=== PATIENT | female | born 1990 | race Caucasian/White ===

== ENCOUNTER 2016-07-01 07:15 | Inpatient (IN) | payer BC ==
[2016-07-01] VITALS (30 sets, daily range): BP systolic 118–166; BP diastolic 75–115; PULSE 71–121; TEMP 97.8–98.3
[~2016-07-01] VITALS: Ht 167.6 cm; Wt 93.5 kg
[2016-07-01] MEDS ORDERED: ZOVIRAX 200MG200 MG PO (07:22)
[2016-07-01 07:52] LABS: BASO % 0.3 % (0.0-2.0); EOS # 0.2 (0.0-0.7); EOS % 1.3 % (0-4.0); GRAN # 8.6 (1.4-6.5); GRAN % 74.2 % (42.2-75.2); HEMOGLOBIN 12.3 g/dl (12.5-16.0); LYMPH % 16.9 % (20.0-51.0); MEAN CELL VOLUME 82 fl (80.0-100.0); MEAN CORPUSCULAR HEMOGLOBIN 28 pg (27.0-31.0); MEAN CORPUSCULAR HGB CONC 34 g/dl (33.0-37.0); MEAN PLATELET VOLUME 9.8 fl (7.4-10.4); MONO # 0.8 (0.1-0.6); MONO % 6.4 % (1.7-9.3); PLATELET COUNT 259 K/mm3 (130-400); RED BLOOD COUNT 4.44 M/mm3 (4.10-5.30); REDCELL DISTRIBUTION WIDTH-CV 13.2 % (11.5-14.5); WHITE BLOOD COUNT 11.6 K/mm3 (4.8-10.8)
[2016-07-01 07:54] LABS: HEMATOCRIT 36.5 % (37.0-47.0)
[2016-07-02 04:45] VITALS: BP 132/76; PULSE 94; TEMP 98.2
[2016-07-02 07:07] VITALS: BP 118/71; PULSE 84; TEMP 98
[2016-07-02 14:51] VITALS: BP 136/90; PULSE 81; TEMP 98.1
[2016-07-02 21:00] VITALS: BP 147/102; PULSE 66; TEMP 97.4
[2016-07-03 07:51] VITALS: BP 136/91; PULSE 83; TEMP 97.5
[2016-07-03] MEDS ORDERED: IBU600 MG PO (08:36)
[2016-07-03] MEDS ORDERED: PERCOCET 325 MG1 TA2 PO (08:36)
== END 2016-07-03 10:24 | disposition home health service (06) | DRG 775 ==
LOC: LDR 07:15 → OB 15:50
PROVIDERS: Obstetrics & Gynecology
PROC: 10E0XZZ Delivery of Products of Conception, External Approach (ICD-10-PCS; principal; 2016-07-01)
PROC: 0KQM0ZZ Repair Perineum Muscle, Open Approach (ICD-10-PCS; 2016-07-01)
DX: O99.824 Streptococcus B carrier state complicating childbirth (principal); O70.1 Second degree perineal laceration during delivery; Z3A.39 39 weeks gestation of pregnancy; Z37.0 Single live birth
CPT/HCPCS: J0360; J2540; J2590; J7120

== ENCOUNTER 2020-02-12 07:19 | Inpatient (IN) | payer OTHER ==
[2020-02-12] VITALS (34 sets, daily range): BP systolic 121–162; BP diastolic 70–103; PULSE 60–96; TEMP 98.2–98.3
[~2020-02-12] VITALS: Ht 167.6 cm; Wt 96.8 kg
[~2020-02-12 07:19] MED LIST: IBU600 MG PO; PERCOCET 325 MG1 TA2 PO; ZOVIRAX 200MG200 MG PO
--- NOTE | 2020-02-12 07:35 | NUR ---
Patient ambulatory to LR6 with spouse, changed into gown, FHR/TOCO monitors applied and explained. Patient denies any regular contractions/leaking of fluid/vaginal bleeding/decreased movement. Plan of care discussed 0755: IV started in left hand and blood obtained and to lab, LR/Penicillin infusing. Assessment completed and consents gone over and signed/ packet given.
[2020-02-12] MEDS ORDERED: PRENATAL TABLET PO (07:56)
--- NOTE | 2020-02-12 08:20 | NUR ---
Roles at bedside and assessing patient and FHR. No new orders at this time. 0835: Patient on birthing ball and difficulty tracing FHR due to maternal position, this RN at bedsid adjusting monitor. 1000: Patient requesting epidural at this time and Jay AMADO notified. 1015: Patient sitting on edge of bed for epidural and Jay NURSERY HELPER at bedside and difficulty tracing FHR due to maternal position. 1023: Test dose given and patient tolerates well. 1028: Patient repositioned and safety precautions discussed.
[2020-02-12 08:40] LABS: BASO % 0.3 % (0.0-2.0); EOS # 0.1 (0.0-0.7); EOS % 0.8 % (0-4.0); GRAN # 8.2 (1.4-6.5); GRAN % 75.3 % (42.2-75.2); HEMATOCRIT 41.1 % (37.0-47.0); HEMOGLOBIN 13.9 g/dl (12.5-16.0); LYMPH # 1.9 (1.2-3.4); LYMPH % 17.7 % (20.0-51.0); MEAN CELL VOLUME 88 fl (80.0-100.0); MEAN CORPUSCULAR HEMOGLOBIN 30 pg (27.0-31.0); MEAN CORPUSCULAR HGB CONC 34 g/dl (33.0-37.0); MEAN PLATELET VOLUME 10.6 fl (7.4-10.4); MONO # 0.6 (0.1-0.6); MONO % 5.4 % (1.7-9.3); PLATELET COUNT 237 K/mm3 (130-400); RED BLOOD COUNT 4.67 M/mm3 (4.10-5.30); REDCELL DISTRIBUTION WIDTH-CV 13.3 % (11.5-14.5)
--- NOTE | 2020-02-12 11:15 | NUR ---
Dr Roles at bedside and assessing patient and FHR strip. 1115: SVE per physician /- and AROM with clear fluid noted. No new orders.
--- NOTE | 2020-02-12 13:10 | NUR ---
Patient vomitting at this time and monitor adjusted. 1325: SVE-5/80/-2 and patient repositioned. FHR baseline 115bpm with moderate variability noted. 1415: Recurrent early variable decelerations noted. FHR baseline decreaseing to 90-100bpm 1420: SVE-10/100/0 and scalp stimulation noted. Marie catheter removed. Patient sitting in tracey position. 1426: Dr. Estrella called for delivery.
--- NOTE | 2020-02-12 14:35 | NUR ---
1435: Dr. Estrella at bedside and patient prepped for vaginal delivery. Bed taken apart and pericare done. 1439: Patient begins to start pushing with contractions per Dr. Estrella orders. 1441: Spontaneous vaginal delivery of viable male- head followed by body. bulb syringed and to patients abdomen and LDmitri RN assumes care of . Cord clamped and cut by physician and cord blood obtained. 1444: Spontaneous delivery of placenta and pitocin bolus started per protocol at 333mU. Dr. Estrella repairs laceration and fundal massage done/firm/bleeding WNL. Patient repositioned/pericare done/ice pack to perineum. Plan of care discussed.
--- NOTE | 2020-02-12 18:15 | NUR ---
Report recieved. Resting in bed with baby and support person. Updated whiteboard and reviewed POC. Denied questions or concerns. Reports she voided prior to report, hat was not in place.
[2020-02-13 03:15] VITALS: BP 134/91; PULSE 75; TEMP 97.7
[2020-02-13 08:05] VITALS: BP 138/92; PULSE 68; TEMP 98.1
--- NOTE | 2020-02-13 08:47 | NUR ---
Initial visit; Parents thanked Community Health Coordinator for offering congratulations and God's blessings for the of their son. Community Health Coordinator thanked them for choosing our hospital.
[2020-02-13] MEDS ORDERED: IBU600 MG PO (08:56)
[2020-02-13 11:05] VITALS: BP 121/84; PULSE 76; TEMP 98.4
== END 2020-02-13 16:20 | disposition home or self-care (01) | DRG 807 ==
LOC: OB 07:19 → LDR 07:19 → OB 14:59
PROVIDERS: ADMIT Obstetrics & Gynecology
PROC: 10E0XZZ Delivery of Products of Conception, External Approach (ICD-10-PCS; principal; 2020-02-12)
PROC: 0KQM0ZZ Repair Perineum Muscle, Open Approach (ICD-10-PCS; 2020-02-12)
PROC: 10907ZC Drainage of Amniotic Fluid, Therapeutic from Products of Conception, Via Natural or Artificial Opening (ICD-10-PCS; 2020-02-12)
DX: O99.824 Streptococcus B carrier state complicating childbirth (principal); Z37.0 Single live birth; O70.1 Second degree perineal laceration during delivery; Z3A.39 39 weeks gestation of pregnancy
CPT/HCPCS: J2540; J2590; J7120